=== PATIENT | female | born 1955 | race Caucasian/White ===

== ENCOUNTER 2018-11-09 04:02 | Observation (INO) | payer OTHER ==
[2018-11-09] MEDS ORDERED: ASPIRIN 81 MG TABLET, CHEWABLE PO ONE (04:55)
[2018-11-09] MEDS ORDERED: NITROGLYCERIN 0.4 MG/TAB 25 TAB/BOTTLE SL ONE (04:56)
--- NOTE | 2018-11-09 04:57 | ER Document Report ---
ED Cardiac - General Chief Complaint: Chest Pain Stated Complaint: CHEST DISCOMFORT Time Seen by Provider: 11/09/18 04:38 Mode of Arrival: Ambulatory Information source: Patient TRAVEL OUTSIDE OF THE [place] IN LAST 30 DAYS: No - HPI Patient complains to provider of: Chest pain. denies: Shortness of breath Was the onset of pain: Sudden Chest pain location: Substernal Quality of pain: Pressure Chest pain radiation location: None Severity now: Moderate Severity at worst: Moderate Pain level currently: 3 Chest pain precipitating factors: At Rest Cardiac risk factors: Hypertension Positive cardiac history: No Associated symptoms: Other - Nausea Exacerbated by: Denies Relieved by: Nothing Similar symptoms previously: No Recently seen / treated by doctor: No - Related Data Allergies/Adverse Reactions: Sulfa (Sulfonamide Antibiotics) Allergy (Verified 11/09/18 04:13) Past Medical History - Social History Smoking Status: Never Smoker Frequency of alcohol use: None Drug Abuse: None Family History: Other - Unknown Patient has suicidal ideation: No Patient has homicidal ideation: No - Past Medical History Cardiac Medical History: Reports: Hx Hypertension Pulmonary Medical History: Denies: Hx Tuberculosis Endocrine Medical History: Reports: Hx Hypothyroidism Renal/ Medical History: Denies: Hx Peritoneal Dialysis GI Medical History: Reports: Hx Gastroesophageal Reflux Disease Past Surgical History: Reports: Hx Breast Surgery - R lumpectomy, Hx Cholecystectomy, Hx Hysterectomy. Denies: Hx Pacemaker Review of Systems - Review of Systems Constitutional: No symptoms reported EENT: No symptoms reported Cardiovascular: Chest pain Respiratory: No symptoms reported Gastrointestinal: Nausea Genitourinary: No symptoms reported Female Genitourinary: No symptoms reported Musculoskeletal: No symptoms reported Skin: No symptoms reported Hematologic/Lymphatic: No symptoms reported Neurological/Psychological: No symptoms reported -: Yes All other systems reviewed and negative Physical Exam - Vital signs Vitals: Temp Pulse Resp BP Pulse Ox 97.7 F 84 16 140/69 H 98 11/09/18 04:07 11/09/18 04:07 11/09/18 04:07 11/09/18 04:07 11/09/18 04:07 Interpretation: Normal - General General appearance: Appears well, Alert In distress: None - HEENT Head: Normocephalic, Atraumatic Eyes: Normal Pupils: PERRL - Respiratory Respiratory status: No respiratory distress Chest status: Nontender Breath sounds: Normal Chest palpation: Normal - Cardiovascular Rhythm: Regular Heart sounds: Normal auscultation Murmur: No - Abdominal Inspection: Normal Distension: No distension Bowel sounds: Normal Tenderness: Nontender Organomegaly: No organomegaly - Back Back: Normal, Nontender - Extremities General upper extremity: Normal inspection, Nontender, Normal color, Normal ROM, Normal temperature General lower extremity: Normal inspection, Nontender, Normal color, Normal ROM, Normal temperature, Normal weight bearing. No: Flash's sign - Neurological Neuro grossly intact: Yes Cognition: Normal Orientation: AAOx4 [place] Coma Scale Eye Opening: Spontaneous [place] Coma Scale Verbal: Oriented [place] Coma Scale Motor: Obeys Commands [place] Coma Scale Total: 15 Speech: Normal Motor strength normal: LUE, RUE, LLE, RLE Sensory: Normal - Psychological Associated symptoms: Normal affect, Normal mood - Skin Skin Temperature: Warm Skin Moisture: Dry Skin Color: Normal Course - Re-evaluation Re-evalutation: 11/09/18 06:34 I discussed with the patient her lab results and the plan for admission by the hospitalist. - Vital Signs Vital signs: Temp Pulse Resp BP Pulse Ox 97.8 F 78 16 146/75 H 100 11/09/18 09:03 11/09/18 14:00 11/09/18 09:03 11/09/18 09:03 11/09/18 09:03 - Laboratory Result Diagrams: 11/09/18 04:29 11/09/18 13:03 Laboratory results interpreted by me: 11/09/18 11/09/18 04:29 04:29 Monocytes % 13.8 H Sodium 130.2 L Chloride 93 L BUN 24 H Est GFR ( Amer) 53 L Est GFR (Non-Af Amer) 43 L AST 37 H - Diagnostic Test Radiology reviewed: Reports reviewed Radiology results interpreted by me: 11/09/18 06:16 Chest x-ray is unremarkable. - EKG Interpretation by Me EKG shows normal: Sinus rhythm Rate: Normal Rhythm: NSR [place]/QRS: Left axis deviation When compared to previous EKG there are: Previous EKG unavailable Additional EKG results interpreted by me: 11/09/18 06:17 No STEMI. - Transfer of Care Notes: 11/09/18 06:17 I consulted the hospitalist pneumatic system conveyor operator Dr. Alonso. He will admit the patient for further evaluation and management. Discharge - Discharge Clinical Impression: Dehydration, Acute hyponatremia Chest pain Qualifiers: Chest pain type: precordial pain Qualified Code(s): R07.2 - Precordial pain Condition: Stable Disposition: ADMITTED INPATIENT Admitting Provider: Celeste (Hospitalist) Unit Admitted: Telemetry
[2018-11-09 05:13] LABS: ABSOLUTE BASOPHILS # (AUTO) 0.1 10^3/uL (0.0-0.2); ABSOLUTE EOSINOPHILS # (AUTO) 0.1 10^3/uL (0.0-0.6); ABSOLUTE MONOCYTES (AUTO) 0.8 10^3/uL (0.1-1.4); ABSOLUTE NEUT (AUTO) 2.9 10^3/uL (1.7-8.2); BASOPHILS % (AUTO) 1.3 % (0-2); EOSINOPHILS % (AUTO) 2.2 % (0-6); HEMATOCRIT 43.7 % (36.0-47.0); HEMOGLOBIN 14.7 g/dL (12.0-15.5); LYMPHOCYTES % (AUTO) 33.8 % (13-45); MEAN CORPUSCULAR HEMOGLOBIN 29.8 pg (27.0-33.4); MEAN CORPUSCULAR HGB CONC 33.7 g/dL (32.0-36.0); MEAN CORPUSCULAR VOLUME 89 fl (80-97); MONOCYTES % (AUTO) 13.8 % (3-13); PLATELET COUNT 187 10^3/uL (150-450); RED BLOOD COUNT 4.94 10^6/uL (3.72-5.28); RED CELL DISTRIBUTION WIDTH 13.5 % (11.5-14.0); SEGMENTED NEUTROPHILS % (AUTO) 48.9 % (42-78); TOTAL CELLS COUNTED % (AUTO) 100 %
[2018-11-09 05:17] LABS: ALANINE AMINOTRANSFERASE 27 U/L (9-52); ALBUMIN 4.3 g/dL (3.5-5.0); ALKALINE PHOSPHATASE 80 U/L (38-126); ANION GAP 8 (5-19); ASPARTATE AMINO TRANSFERASE 37 U/L (14-36); BILIRUBIN,DIRECT 0.3 mg/dL (0.0-0.4); BILIRUBIN,TOTAL 0.8 mg/dL (0.2-1.3); BLOOD UREA NITROGEN 24 mg/dL (7-20); CALCIUM 9.7 mg/dL (8.4-10.2); CARBON DIOXIDE 29 mmol/L (22-30); CHLORIDE 93 mmol/L (98-107); CREATINE KINASE 90 U/L (30-135); GLUCOSE 102 mg/dL (75-110); POTASSIUM 4.6 mmol/L (3.6-5.0); SODIUM 130.2 mmol/L (137-145); TOTAL PROTEIN 7.7 g/dL (6.3-8.2)
[2018-11-09 05:23] LABS: PROTHROMBIN TIME 12.2 SEC (11.4-15.4)
[2018-11-09 05:24] LABS: PARTIAL THROMBOPLASTIN TIME 26.5 SEC (23.5-35.8)
[2018-11-09 05:28] LABS: CREATINE KINASE MB 1.35 ng/mL (<4.55)
[2018-11-09 05:30] LABS: TROPONIN I < 0.012 ng/mL
[2018-11-09] MEDS ORDERED: NORMAL SALINE 1000 ML 1,000 ML IV ONE ×2 (05:33→06:19)
--- NOTE | 2018-11-09 05:34 | RADIOLOGY REPORT (SQ) ---
EXAM DESCRIPTION: XR CHEST 1 VIEW COMPLETED DATE/TME: 11/09/2018 04:55 CLINICAL HISTORY: 63 years, Female, chest pain COMPARISON: 12/02/2011 chest NUMBER OF VIEWS: 1 TECHNIQUE: Portable chest LIMITATIONS: None. FINDINGS: Heart size is normal. Osteopenia. Lungs are clear. No pneumothorax IMPRESSION: No acute cardiopulmonary process copyright 2010 [employer]- All Rights Reserved
[2018-11-09 07:10] LABS: APPEARANCE,URINE CLEAR; BILIRUBIN,URINE NEGATIVE (NEGATIVE); COLOR,URINE STRAW; GLUCOSE, URINE NEGATIVE (NEGATIVE); KETONES,URINE NEGATIVE (NEGATIVE); LEUKOCYTE ESTERASE,URINE NEGATIVE (NEGATIVE); NITRITE,URINE NEGATIVE (NEGATIVE); PROTEIN,URINE NEGATIVE (NEGATIVE); URINE SPECIFIC GRAVITY 1.003; UROBILINOGEN,URINE NEGATIVE mg/dL (<2.0)
[2018-11-09] MEDS ORDERED: TEMAZEPAM 7.5 MG CAPSULE PO PRN (08:36)
[2018-11-09] MEDS ORDERED: ACETAMINOPHEN 325 MG TABLET PO PRN (08:36)
[2018-11-09] MEDS ORDERED: MAG HYDROX/AL HYDROX/SIMETH SUSP 30 ML UDCUP PO PRN (08:36)
[2018-11-09] MEDS ORDERED: MAGNESIUM HYDROXIDE SUSP 30 ML UDCUP PO PRN (08:36)
[2018-11-09] MEDS ORDERED: PROMETHAZINE HCL 25 MG TABLET PO PRN (08:36)
--- NOTE | 2018-11-09 08:49 | ADVANCED CARE ---
- Diagnosis (1) Chest pain Diagnosis Current: Yes (2) Acute hyponatremia Diagnosis Current: Yes (3) Hypertension Diagnosis Current: Yes (4) Hypothyroidism Diagnosis Current: Yes (5) Dehydration Diagnosis Current: Yes Attendance: The patient and her Resuscitation Status: Full Code Discussion: We reviewed the healthcare proxy documentation in the admission packet. I reviewed scenarios in which unexpected events may cause incapacitation with severe injury. I reviewed examples of when decisions might be thrust on the patient's or her daughter. These decisions are extremely stressful. Showed the patient where she could outline that only her primary but secondary decision maker. In addition we reviewed possible guidelines such as not wanting to live in a penitentiary for the rest of her life, not wanting to be dependent on a feeding tube permanently, not wanting a tracheostomy and not wanting prolonged use of a ventilator. The patient is going to review the documentation during this admission. I also suggested that her consider completing a document and that they discussed this with the family so they are aware of their wishes as well. Care Planning Goals: Educate the patient and her regarding the use of advanced care proxies and other advanced care planning documentation. Document(s) Completed: Reviewed but not completed Time Spent: 20 minutes
[2018-11-09] MEDS ORDERED: HYDROCHLOROTHIAZIDE 12.5 MG TABLET PO SCH (09:00)
--- NOTE | 2018-11-09 09:05 | PDOC H&P ---
History of Present Illness Admission Date/PCP: 11/09/18 06:27 Patient complains of: Chest pain History of Present Illness: KIKA PARTICK is a 63 year old female with a history of hypertension, hypothyroidism, breast cancer, gastroesophageal reflux disease and allergic rhinitis. She is also suffering from sciatica. She states that she completed a course of prednisone therapy on Tuesday. This was 60 mg for 3 days then 40 mg for 3 days and finally 20 mg for 3 days. On Tuesday and Tuesday she began to notice substernal chest pain. This was associated with nausea and diaphoresis. After several hours these episodes would subside. 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 In general she has had difficulty sleeping over the last several days. Last evening she was able to sleep for 2 hours. Her reports significant snoring. After 2 hours she woke up to go to the bathroom but noticed acute onset of the pressure again. With this episode she decided to present to the emergency department for evaluation. During the initial evaluation she was found to be hyponatremic (sodium 130) with an elevated BUN of 24. Her pressure did resolve. At this time an EKG was unavailable for review. She was given intravenous fluids for the low sodium and referred to the hospital service for admission. Past Medical History Cardiac Medical History: Reports: Hypertension Pulmonary Medical History: Denies: Tuberculosis EENT Medical History: Reports: Eyes - Wears glasses, Nose - Allergic rhinitis Neurological Medical History: Denies: Hemorrhagic CVA, Ischemic CVA Endocrine Medical History: Reports: Hypothyroidism Denies: Diabetes Mellitus Type 2 Renal/ Medical History: Denies: Chronic Kidney Disease, Nephrolithiasis Malignancy Medical History: Reports: Breast Cancer GI Medical History: Reports: Gastroesophageal Reflux Disease Musculoskeltal Medical History: Reports: Other - Sciatica Skin Medical History: Denies: Eczema, Psoriasis Psychiatric Medical History: Denies: Alcohol Dependency, Depression, General Anxiety Disorder, Post Traumatic Stress Disorder, Substance Abuse, Tobacco Dependency Traumatic Medical History: Reports: None Hematology: Denies: Anemia, Bleeding Tendencies Infectious Medical History: Reports: None Past Surgical History Past Surgical History: Reports: Cholecystectomy, Hysterectomy Denies: Pacemaker Social History Information Source: Patient - And Lives with: Family Smoking Status: Never Smoker Frequency of Alcohol Use: None Hx Recreational Drug Use: No Hx Prescription Drug Abuse: No - Advance Directive Resuscitation Status: Full Code Surrogate healthcare decision maker:: Her would be the primary decision maker in the event of her incapacitation. Family History Family History: Malignancy Parental Family History Reviewed: Yes - Father-leukemia Children Family History Reviewed: Yes Sibling(s) Family History Reviewed.: Yes - 1 sister breast cancer Medication/Allergy Allergies/Adverse Reactions: Sulfa (Sulfonamide Antibiotics) Allergy (Verified 11/09/18 04:13) Review of Systems Constitutional: ABSENT: anorexia, chills, fever(s), headache(s), weakness Eyes: ABSENT: visual disturbances Ears: ABSENT: hearing changes Nose, Mouth, and Throat: ABSENT: headache(s), mouth pain, sore throat Cardiovascular: PRESENT: chest pain. ABSENT: edema, palpitations Gastrointestinal: PRESENT: constipation, nausea. ABSENT: abdominal pain, coffee ground emesis, diarrhea, heartburn, melena, vomiting Genitourinary: ABSENT: dysuria, hematuria, nocturia Musculoskeletal: PRESENT: other - Right hip pain. ABSENT: back pain, joint swelling Integumentary: PRESENT: diaphoresis. ABSENT: erythema, pruritus, rash, wounds Neurological: ABSENT: abnormal gait, abnormal movements, abnormal speech, focal weakness, memory loss, syncope, tingling, tremor(s) Psychiatric: ABSENT: anxiety, depression, hallucinations Endocrine: ABSENT: cold intolerance, heat intolerance, polydipsia, polyphagia, polyuria Hematologic/Lymphatic: ABSENT: easy bleeding, easy bruising Allergic/Immunologic: PRESENT: seasonal rhinorrhea Physical Exam Vital Signs: Temp Pulse Resp BP Pulse Ox 97.7 F 84 16 135/75 H 100 11/09/18 04:07 11/09/18 04:07 11/09/18 08:01 11/09/18 08:01 11/09/18 08:01 Intake & Output 11/08/18 11/09/18 11/10/18 06:59 06:59 06:59 Intake Total 1000 Balance 1000 Weight 87.5 kg General appearance: PRESENT: no acute distress, cooperative, well-developed Head exam: PRESENT: atraumatic, normocephalic Eye exam: PRESENT: conjunctiva pink, EOMI. ABSENT: scleral icterus Ear exam: PRESENT: normal external ear exam Mouth exam: PRESENT: moist, tongue midline Throat exam: ABSENT: post pharyngeal erythema, tonsillar exudate Neck exam: PRESENT: full ROM. ABSENT: carotid bruit, JVD, lymphadenopathy Respiratory exam: PRESENT: clear to auscultation juanpablo, symmetrical, unlabored. ABSENT: accessory muscle use, rales, rhonchi, tachypnea, wheezes Cardiovascular exam: PRESENT: RRR, +S1, +S2, systolic murmur - Faint (1/6) systolic murmur Pulses: PRESENT: normal radial pulses, normal dorsalis pedis pul GI/Abdominal exam: PRESENT: normal bowel sounds, soft. ABSENT: distended, guard ing, tenderness Rectal exam: PRESENT: deferred Gentrourinary exam: ABSENT: indwelling catheter Extremities exam: PRESENT: full ROM. ABSENT: joint swelling, pedal edema Musculoskeletal exam: PRESENT: ambulatory, normal inspection Neurological exam: PRESENT: alert, awake, oriented to person, oriented to place, oriented to time, oriented to situation, CN II-XII grossly intact. ABSENT: motor sensory deficit Psychiatric exam: PRESENT: appropriate affect, normal mood. ABSENT: agitated, anxious Focused psych exam: ABSENT: delusional, restlessness Skin exam: PRESENT: dry, normal color, warm. ABSENT: pallor, rash Results Laboratory Results: 11/09/18 04:29 11/09/18 04:29 11/09/18 11/09/18 11/09/18 04:29 04:29 06:52 WBC 6.0 RBC 4.94 Hgb 14.7 Hct 43.7 MCV 89 MCH 29.8 MCHC 33.7 RDW 13.5 Plt Count 187 Seg Neutrophils % 48.9 Lymphocytes % 33.8 Monocytes % 13.8 H Eosinophils % 2.2 Basophils % 1.3 Absolute Neutrophils 2.9 Absolute Lymphocytes 2.0 Absolute Monocytes 0.8 Absolute Eosinophils 0.1 Absolute Basophils 0.1 Sodium 130.2 L Potassium 4.6 Chloride 93 L Carbon Dioxide 29 Anion Gap 8 BUN 24 H Creatinine 1.25 Est GFR ( Amer) 53 L Est GFR (Non-Af Amer) 43 L Glucose 102 Calcium 9.7 Total Bilirubin 0.8 AST 37 H ALT 27 Alkaline Phosphatase 80 Total Protein 7.7 Albumin 4.3 Urine Color STRAW Urine Appearance CLEAR Urine pH 7.0 Ur Specific [place] 1.003 Urine Protein NEGATIVE Urine Glucose (UA) NEGATIVE Urine Ketones NEGATIVE Urine Blood NEGATIVE Urine Nitrite NEGATIVE Ur Leukocyte Esterase NEGATIVE Urine WBC (Auto) 0 11/09/18 11/09/18 04:29 04:29 Creatine Kinase 90 CK-MB (CK-2) 1.35 Troponin I < 0.012 Impressions: Chest X-Ray 11/09/18 04:55 IMPRESSION: No acute cardiopulmonary process copyright 2010 [employer]- All Rights Reserved Assessment and Plan - Diagnosis (1) Chest pain Qualifiers: Chest pain type: precordial pain Qualified Code(s): R07.2 - Precordial pain Is this a current diagnosis for this admission?: Yes Plan: 11/09/2018-the patient's first troponin was less than 0.012. An EKG was unavailable for review in the electronic medical record. The patient is currently pain-free. She is being treated for hypertension. There is no strong family history of cardiac disease. It is possible that the discomfort and diaphoresis are related to her recent course of prednisone therapy. Regardless, she will be admitted to observation status and placed on telemetry. We will complete serial troponin and creatinine kinase enzyme studies. I have asked for an EKG now as well as in the morning. Explained to the patient that if in fact her enzymes are negative and there is no further work-up needed I would discharg e her tomorrow and refer her back to Dr. Narayanan for further work-up. (2) Acute hyponatremia Is this a current diagnosis for this admission?: Yes Plan: 11/09/2018-the patient's sodium is only 130. She is on a thiazide diuretic. T his is the most likely cause of her hyponatremia. I will hold the thiazide diuretic. She received 2 L of normal saline in the emergency department. I will recheck her laboratory studies. (3) Hypertension Qualifiers: Hypertension type: essential hypertension Qualified Code(s): I10 - Essential (primary) hypertension Is this a current diagnosis for this admission?: Yes Plan: She is normally on lisinopril/hydrochlorothiazide 20-12.5 mg tablet once daily. I will continue the lisinopril but hold the hydrochlorothiazide as this could be contributing to the hyponatremia. We will continue to monitor her blood pressure and try to maintain good control. She just finished a course of prednisone therapy but the potential effects for elevated blood pressure should be gone by now. (4) Hypothyroidism Qualifiers: Hypothyroidism type: unspecified Qualified Code(s): E03.9 - Hypothyroidism, unspecified Is this a current diagnosis for this admission?: Yes Plan: 11/09/2018-we will continue her levothyroxine 88 mcg daily. I will check a TSH level. (5) Dehydration Is this a current diagnosis for this admission?: Yes Plan: 11/09/2018-her BUN was slightly elevated at 24. She received 2 L of fluid in the emergency department. We will monitor her intake and output and repeat her blood work. - Time Time Spent with patient: 35 or more minutes Medications reviewed and adjusted accordingly: Yes Anticipated discharge: Home Within: within 24 hours
[2018-11-09] MEDS: LISINOPRIL 10 MG TABLET PO SCH (10:21)
[2018-11-09 12:48] LABS: TROPONIN I < 0.012 ng/mL
[2018-11-09] MEDS: HEPARIN SOD (PORCINE) 5,000 UNIT/ML 1 ML SYRINGE SUBCUT SCH ×2 (13:09→21:45)
[2018-11-09 13:55] LABS: ANION GAP 8 (5-19); BLOOD UREA NITROGEN 20 mg/dL (7-20); CALCIUM 9.5 mg/dL (8.4-10.2); CARBON DIOXIDE 26 mmol/L (22-30); CHLORIDE 102 mmol/L (98-107); CREATINE KINASE 85 U/L (30-135); GLUCOSE 92 mg/dL (75-110); POTASSIUM 4.8 mmol/L (3.6-5.0); SODIUM 135.9 mmol/L (137-145)
[2018-11-09 19:17] LABS: CREATINE KINASE MB 0.71 ng/mL (<4.55)
[2018-11-09 19:20] LABS: TROPONIN I < 0.012 ng/mL
--- NOTE | 2018-11-09 20:05 | EKG REPORT ---
SEVERITY:- OTHERWISE NORMAL ECG - SINUS RHYTHM LEFT AXIS DEVIATION : Confirmed by: Edel Truong MD 09-Nov-2018 20:04:34
[2018-11-10 05:31] LABS: ANION GAP 6 (5-19); BLOOD UREA NITROGEN 20 mg/dL (7-20); CARBON DIOXIDE 26 mmol/L (22-30); CHLORIDE 104 mmol/L (98-107); GLUCOSE 90 mg/dL (75-110); POTASSIUM 5.4 mmol/L (3.6-5.0); SODIUM 135.5 mmol/L (137-145)
[2018-11-10] MEDS: HEPARIN SOD (PORCINE) 5,000 UNIT/ML 1 ML SYRINGE SUBCUT SCH (05:45)
[2018-11-10] MEDS ORDERED: LEVOTHYROXINE SODIUM 0.088 MG TABLET PO SCH (06:00)
[2018-11-10] MEDS ORDERED: PANTOPRAZOLE SODIUM 20 MG TABLET.DR PO SCH (06:00)
[2018-11-10] MEDS: LISINOPRIL 10 MG TABLET PO SCH (09:52)
[2018-11-10 11:13] VITALS: BP 111/65
--- NOTE | 2018-11-10 11:21 | PDOC DISCHARGE SUMMARY ---
General - Admit/Disc Date/PCP Admission Date/Primary Care Provider: 11/09/18 06:27 Discharge Date: 11/10/18 - Discharge Diagnosis (1) Chest pain Is this a current diagnosis for this admission?: Yes Summary: The chest pain that she has been having has resolved. Serial troponins were negative and this is not likely cardiogenic. We discussed other possible etiologies including gastroesophageal, musculoskeletal and stress related. None of these are obviously problematic at this time. (2) Acute hyponatremia Is this a current diagnosis for this admission?: Yes Summary: The hyponatremia is most likely due to the Hydrocort thiazide portion of her medication. I am going to discontinue the combination pill and trial lisinopril and furosemide. Her serum sodium is up to 135 this morning after 2 L of normal saline. (3) Hypertension Is this a current diagnosis for this admission?: Yes Summary: The patient checks her blood pressure regularly at home. And has been on the low side. This morning her systolic was 109. She did get the 20 mg of lisinopril. At discharge I am going to change her to 10 mg of lisinopril and 20 mg of furosemide as noted above. (4) Hypothyroidism Is this a current diagnosis for this admission?: Yes Summary: Continue previous dose of levothyroxine. TSH was normal at this time. (5) Dehydration Is this a current diagnosis for this admission?: Yes Summary: The patient was mildly dehydrated. We discussed the furosemide being another diuretic like the hydrochlorthiazide. I encouraged her to stay well-hydrated especially in the warm weather. BUN has normalized. - Additional Information Resuscitation Status: Full Code Prescriptions: Furosemide [Lasix 20 mg Tablet] 20 mg PO DAILY 14 Days #14 tablet Lisinopril [Prinivil 10 mg Tablet] 10 mg PO DAILY 14 Days #14 tablet Home Medications: Cholecalciferol (Vitamin D3) [Vitamin D3] 1,000 unit PO DAILY 11/09/18 Fluticasone Propionate [Flonase Nasal [place] 50 Mcg/[place] 16 gm] 1 spray NASL DAILYP PRN 11/09/18 Levothyroxine Sodium [Synthroid 0.088 mg Tablet] 0.088 mg PO Q6AM 11/09/18 Omeprazole 20 mg PO [id number] 11/09/18 Vitamin E Acetate [Vitamin E] 800 unit PO DAILY 11/09/18 Furosemide [Lasix 20 mg Tablet] 20 mg PO DAILY 14 Days #14 tablet 11/10/18 Levothyroxine Sodium [Synthroid 0.088 mg Tablet] 0.088 mg PO Q6AM tablet 11/10/18 Lisinopril [Prinivil 10 mg Tablet] 10 mg PO DAILY 14 Days #14 tablet 11/10/18 History of Present Illness Patient complains of: Chest pain History of Present Illness: KIKA PATRICK is a 63 year old female with a history of hypertension, hypothyroidism, breast cancer, gastroesophageal reflux disease and allergic rhinitis. She is also suffering from sciatica. She states that she completed a course of prednisone therapy on Tuesday. This was 60 mg for 3 days then 40 mg for 3 days and finally 20 mg for 3 days. On Tuesday and Tuesday she began to notice substernal chest pain. This was associated with nausea and diaphoresis. After several hours these episodes would subside. 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 In general she has had difficulty sleeping over the last several days. Last evening she was able to sleep for 2 hours. Her reports significant snoring. After 2 hours she woke up to go to the bathroom but noticed acute onset of the pressure again. With this episode she decided to present to the emergency department for evaluation. During the initial evaluation she was found to be hyponatremic (sodium 130) with an elevated BUN of 24. Her pressure did resolve. At this time an EKG was unavailable for review. She was given intravenous fluids for the low sodium and referred to the hospital service for admission. Hospital Course Hospital Course: See details above Patient had an unremarkable hospital course. She had no recurrence of chest pain. The sodium corrected with normal saline and changing her medications. Potassium is slightly elevated today but this will resolve with resumption of the diuretic. We are using furosemide starting tomorrow. Physical Exam Vital Signs: Temp Pulse Resp BP Pulse Ox 97.5 F 67 15 106/75 100 11/10/18 07:46 11/10/18 07:46 11/10/18 07:46 11/10/18 07:46 11/10/18 07:46 Intake & Output 11/09/18 11/10/18 11/11/18 06:59 06:59 06:59 Intake Total 1000 2210 Balance 1000 2210 Weight 87.5 kg 90 kg General appearance: PRESENT: no acute distress, cooperative, well-developed Head exam: PRESENT: atraumatic, normocephalic Neck exam: PRESENT: full ROM. ABSENT: thyromegaly Respiratory exam: PRESENT: clear to auscultation juanpablo, symmetrical, unlabored. ABSENT: accessory muscle use, rales, rhonchi, tachypnea, wheezes Cardiovascular exam: PRESENT: RRR, +S1, +S2 Pulses: PRESENT: normal radial pulses, normal dorsalis pedis pul GI/Abdominal exam: PRESENT: normal bowel sounds, soft. ABSENT: distended, tenderness Rectal exam: PRESENT: deferred Gentrourinary exam: ABSENT: indwelling catheter Extremities exam: ABSENT: joint swelling, pedal edema Musculoskeletal exam: PRESENT: ambulatory, normal inspection Neurological exam: PRESENT: alert, awake, oriented to person, oriented to place, oriented to time, oriented to situation, CN II-XII grossly intact. ABSENT: motor sensory deficit Psychiatric exam: PRESENT: appropriate affect, normal mood. ABSENT: agitated, anxious Focused psych exam: ABSENT: delusional, restlessness Skin exam: PRESENT: dry, normal color, warm. ABSENT: rash Results Laboratory Results: 11/09/18 04:29 11/10/18 04:39 11/09/18 11/10/18 13:03 04:39 Sodium 135.9 L 135.5 L Potassium 4.8 5.4 H Chloride 102 104 Carbon Dioxide 26 26 Anion Gap 8 6 BUN 20 20 Creatinine 1.17 1.15 Est GFR ( Amer) 57 L 58 L Est GFR (Non-Af Amer) 47 L 48 L Glucose 92 90 Calcium 9.5 9.0 Magnesium 2.0 11/09/18 11/09/18 11/09/18 04:29 04:29 08:36 Creatine Kinase 90 CK-MB (CK-2) 1.35 Troponin I < 0.012 < 0.012 11/09/18 11/09/18 11/09/18 11:52 13:03 18:28 Creatine Kinase 85 72 CK-MB (CK-2) 1.00 Troponin I < 0.012 11/09/18 18:28 Creatine Kinase CK-MB (CK-2) 0.71 Troponin I < 0.012 Impressions: Chest X-Ray 11/09/18 04:55 IMPRESSION: No acute cardiopulmonary process copyright 2011 [employer]- All Rights Reserved Qualifiers - * PATIENT BEING DISCHARGED WITH ANY OF THE FOLLOWING DIAGNOSIS: No Acute Heart Failure - Is this a Heart Failure Patient?: No Plan Time Spent: Greater than 30 Minutes
--- NOTE | 2018-11-10 22:43 | EKG REPORT ---
SEVERITY:- BORDERLINE ECG - LEFT AXIS DEVIATION WANDERING ATRIAL PACEMAKER : Confirmed by: Edel Truong MD 10-Nov-2018 22:41:53
--- NOTE | 2018-11-10 22:43 | EKG REPORT ---
SEVERITY:- OTHERWISE NORMAL ECG - SINUS RHYTHM LEFT AXIS DEVIATION : Confirmed by: Edel Truong MD 10-Nov-2018 22:43:14
[2018-11-11] MEDS ORDERED: FUROSEMIDE 20 MG TABLET PO SCH (10:00)
[2018-11-11] MEDS ORDERED: LISINOPRIL 10 MG TABLET PO SCH (10:00)
== END 2018-11-10 12:02 | disposition home or self-care (01) ==
LOC: ER 04:02 → INTOOBSV 06:27 → EH 06:27 → INTOOBSV 08:36 → OBSVTOIN 08:36 → 3W 08:46
PROVIDERS: ADMIT Hospitalist; ATTEND Emergency Medicine
DX: R07.2 Precordial pain (principal); E87.1 Hypo-osmolality and hyponatremia; I10 Essential (primary) hypertension; E03.9 Hypothyroidism, unspecified; E86.0 Dehydration; M54.30 Sciatica, unspecified side; R11.0 Nausea; R61 Generalized hyperhidrosis; K59.00 Constipation, unspecified; K21.9 Gastro-esophageal reflux disease without esophagitis; M25.551 Pain in right hip; J30.9 Allergic rhinitis, unspecified; R01.1 Cardiac murmur, unspecified; Z79.899 Other long term (current) drug therapy; Z85.3 Personal history of malignant neoplasm of breast; Z90.49 Acquired absence of other specified parts of digestive tract; Z80.6 Family history of leukemia; Z80.3 Family history of malignant neoplasm of breast; Z90.710 Acquired absence of both cervix and uterus
CPT/HCPCS: 93005 ×3; 99285; 96360; 36415 ×2; 82553; 82550; 83735; 84443; 85025; 85610; 85730; 80048; 80053; 81001; 84484; 71045; 93010 ×2; G0378 ×2; J1644 ×2; J3490 ×3; J7030

== ENCOUNTER → 2019-01-10 | Outpatient (CLI) | payer OTHER ==
[2019-01-10 11:44] LABS: ABSOLUTE EOSINOPHILS # (AUTO) 0.1 10^3/uL (0.0-0.6); ABSOLUTE LYMPHOCYTES (AUTO) 1.1 10^3/uL (0.5-4.7); ABSOLUTE MONOCYTES (AUTO) 0.4 10^3/uL (0.1-1.4); ABSOLUTE NEUT (AUTO) 2.4 10^3/uL (1.7-8.2); EOSINOPHILS % (AUTO) 2.6 % (0-6); HEMATOCRIT 42.8 % (36.0-47.0); HEMOGLOBIN 14.2 g/dL (12.0-15.5); LYMPHOCYTES % (AUTO) 26.7 % (13-45); MEAN CORPUSCULAR HEMOGLOBIN 29.5 pg (27.0-33.4); MEAN CORPUSCULAR HGB CONC 33.3 g/dL (32.0-36.0); MEAN CORPUSCULAR VOLUME 89 fl (80-97); MONOCYTES % (AUTO) 10.2 % (3-13); PLATELET COUNT 191 10^3/uL (150-450); RED BLOOD COUNT 4.83 10^6/uL (3.72-5.28); RED CELL DISTRIBUTION WIDTH 13.7 % (11.5-14.0); SEGMENTED NEUTROPHILS % (AUTO) 59.5 % (42-78); TOTAL CELLS COUNTED % (AUTO) 100 %; WHITE BLOOD COUNT 4.1 10^3/uL (4.0-10.5)
[2019-01-10 11:49] LABS: APPEARANCE,URINE CLEAR; BILIRUBIN,URINE NEGATIVE (NEGATIVE); COLOR,URINE STRAW; GLUCOSE, URINE NEGATIVE (NEGATIVE); KETONES,URINE NEGATIVE (NEGATIVE); LEUKOCYTE ESTERASE,URINE NEGATIVE (NEGATIVE); NITRITE,URINE NEGATIVE (NEGATIVE); PROTEIN,URINE NEGATIVE (NEGATIVE); URINE SPECIFIC GRAVITY 1.003; UROBILINOGEN,URINE NEGATIVE mg/dL (<2.0)
[2019-01-10 12:12] LABS: ALBUMIN 4.5 g/dL (3.5-5.0); ANION GAP 11 (5-19); BLOOD UREA NITROGEN 19 mg/dL (7-20); CALCIUM 9.8 mg/dL (8.4-10.2); CARBON DIOXIDE 27 mmol/L (22-30); CHLORIDE 100 mmol/L (98-107); GLUCOSE 93 mg/dL (75-110); PHOSPHORUS 3.5 mg/dL (2.5-4.5)
== END ==
LOC: OD 10:50
PROVIDERS: ATTEND Internal Medicine Nephrology
DX: I12.9 Hypertensive chronic kidney disease with stage 1 through stage 4 chronic kidney disease, or unspecified chronic kidney disease (principal); N18.3 Chronic kidney disease, stage 3 (moderate)
CPT/HCPCS: 36415; 80069; 81001; 83735; 85025